=== PATIENT | female | born 1990 | race Caucasian/White ===

== ENCOUNTER 2020-12-21 14:40 | Inpatient (IN) ==
[2020-12-21] MEDS ORDERED: Famotidine 20 MG/2 ML VIAL IVP PRN (16:30)
[2020-12-21] MEDS ORDERED: Ringers Solution, Lactated 1,000 ML IVC ONE (16:30)
[2020-12-21] MEDS ORDERED: Naloxone 0.4 MG/ML INJ IVP PRN (16:30)
[2020-12-21] MEDS ORDERED: Ringers Solution, Lactated 1,000 ML IVC SCH (16:30)
[2020-12-21] MEDS ORDERED: Famotidine 20 MG/2 ML VIAL IVP ONE (16:30)
[2020-12-21] MEDS ORDERED: Metoclopramide 10 MG/2 ML VIAL IVP PRN ×2 (16:30→23:40)
[2020-12-21] MEDS ORDERED: Oxytocin 20 units/ LR 1000 mL 20 UNIT/1,000 ML BAG IVC SCH ×2 (16:30→23:40)
[2020-12-21] MEDS ORDERED: CeFAZolin 2,000MG/50ML DUPLEX 2,000 MG/50 ML BAG IVPB ONE (16:30)
[2020-12-21] MEDS ORDERED: Oxytocin 20 units/ LR 1000 mL 20 UNIT/1,000 ML BAG IVC ONE (16:30)
[2020-12-21] MEDS ORDERED: Metoclopramide 10 MG/2 ML VIAL IVP ONE (16:30)
[2020-12-21 17:36] LABS: Basophils % 0.2 %; Eosinophils # 0.1 K/mcL (0.0-0.6); Eosinophils % 0.6 %; Hemoglobin 11.8 g/dL (11.5-15.4); Immature Granulocytes % 0.5 % (0-4); Lymphocytes # 1.7 K/mcL (0.6-4.6); Lymphocytes % 13.2 %; Mean Corpuscular HGB Conc 33.7 g/dL (31.6-35.5); Mean Corpuscular Hemoglobin 30.5 pg (28.0-33.3); Mean Corpuscular Volume 90.4 fL (83.0-100.0); Mean Platelet Volume 11.2 fL (9.4-12.4); Monocytes # 0.6 K/mcL (0.0-1.3); Monocytes % 4.9 %; Neutrophils # 10.1 K/mcL (1.6-8.9); Platelet Count 197 K/mcL (140-400); Red Blood Count 3.87 M/mcL (3.82-4.97); Red Cell Distribution Width 12.6 % (11.5-14.5); Segmented Neutrophils % 80.6 %; White Blood Count 12.5 K/mcL (4.3-11.1)
[2020-12-21 17:40] LABS: Amphetamine Screen,Urine Negative ng/mL (Cutoff=1000); Barbiturate Screen,Urine Negative ng/mL (Cutoff=200); Benzodiazepines Screen,Urine Negative ng/mL (Cutoff=200); Cannabinoid Screen,Urine Negative ng/mL (Cutoff = 50); Cocaine Screen,Urine Negative ng/mL (Cutoff= 300); Opiate Screen,Urine Negative ng/mL (Cutoff=300); Phencyclidine Screen,Urine Negative ng/mL (Cutoff=25)
[2020-12-21] MEDS ORDERED: *HR* Morphine Sulfate/PF 10 MG/10 ML AMPUL ONE (19:34)
[2020-12-21] MEDS ORDERED: *HR* FentaNYL (PF) 100 MCG/2 ML VIAL ONE (19:35)
[2020-12-21] MEDS ORDERED: EPHEDrine 50 MG/ML VIAL ONE (20:18)
[2020-12-21] MEDS ORDERED: Ringers Solution, Lactated 1,000 ML ONE (20:34)
[2020-12-21] MEDS ORDERED: *HR* Oxytocin 10 UNIT/ML VIAL IM ONE (20:34)
[2020-12-21] MEDS ORDERED: Acetaminophen IV 1,000 MG/100 ML BAG IVPB ONE (20:47)
[2020-12-21] MEDS ORDERED: Ketorolac 30 MG/ML VIAL ONE (21:23)
[2020-12-21] MEDS ORDERED: *HR* OxyCODONE Immed Rel 5 MG TABLET PO PRN (23:40)
[2020-12-21] MEDS ORDERED: Ondansetron 4 MG/2 ML VIAL IVP PRN (23:40)
[2020-12-21] MEDS ORDERED: Rho Immune Globulin 1,500 UNIT SYRINGE IM ONE (23:40)
[2020-12-21] MEDS ORDERED: Simethicone 80 MG TAB.CHEW PO PRN (23:40)
[2020-12-22] MEDS: Ibuprofen 600 MG TABLET PO SCH ×5 (00:36→23:56)
[2020-12-22] MEDS: Acetaminophen 325 MG TABLET PO SCH ×5 (00:36→23:56)
[2020-12-22 00:55] VITALS: O2SAT 97
[2020-12-22] MEDS ORDERED: Ringers Solution, Lactated 500 ML IVC ONE (02:26)
[2020-12-22 06:38] LABS: Basophils % 0.2 %; Eosinophils # 0.1 K/mcL (0.0-0.6); Eosinophils % 1.1 %; Hematocrit 30.2 % (35.3-44.9); Immature Granulocytes % 0.4 % (0-4); Lymphocytes # 1.5 K/mcL (0.6-4.6); Mean Corpuscular HGB Conc 32.8 g/dL (31.6-35.5); Mean Corpuscular Hemoglobin 30.4 pg (28.0-33.3); Mean Corpuscular Volume 92.6 fL (83.0-100.0); Mean Platelet Volume 10.6 fL (9.4-12.4); Monocytes # 0.7 K/mcL (0.0-1.3); Monocytes % 6.1 %; Platelet Count 150 K/mcL (140-400); Red Blood Count 3.26 M/mcL (3.82-4.97); Red Cell Distribution Width 12.5 % (11.5-14.5); Segmented Neutrophils % 79.2 %; White Blood Count 11.3 K/mcL (4.3-11.1)
[2020-12-22 06:43] LABS: Hemoglobin 9.9 g/dL (11.5-15.4)
[2020-12-22] MEDS: Prenatal Vit/FA 1 EACH TABLET PO SCH (07:54)
[2020-12-23] MEDS: Ibuprofen 600 MG TABLET PO SCH ×2 (06:16→11:56)
[2020-12-23] MEDS: Acetaminophen 325 MG TABLET PO SCH ×2 (06:16→11:56)
[2020-12-23 07:40] VITALS: BP 114/70; PULSE 69; TEMP 98.1
[2020-12-23] MEDS: Prenatal Vit/FA 1 EACH TABLET PO SCH (08:18)
== END 2020-12-23 13:11 | disposition home or self-care (01) | DRG 539 ==
LOC: 1NENULAB → 1NENUOBS 23:43
PROVIDERS: ADMIT Student in an Organized Health Care Education/Training Program; ATTEND Student in an Organized Health Care Education/Training Program